=== PATIENT | female | born 1955 | race Caucasian/White ===

== ENCOUNTER → 2016-12-08 | Outpatient (CLI) | payer BC ==
[2016-12-08 10:03] LABS: BASO % 0.4 %; BASO ABS # 0.02 K/uL (0-0.2); COMPLETE YES; EOS % 2.5 %; HEMATOCRIT 40.6 % (37-47); IG% 0.4 %; LYMPH % 30.6 %; LYMPH ABS # 1.57 K/uL (1.2-3.4); MEAN CORPUSCULAR HEMOGLOBIN 31.2 pg (25-34); MEAN CORPUSCULAR HGB CONC 32.5 g/dl (32-36); MONO % 9.7 %; NEUT % 56.4 %; PLATELET COUNT 261 K/uL (130-400); RED BLOOD COUNT 4.23 M/uL (4.2-5.4); WHITE BLOOD COUNT 5.13 K/uL (4.8-10.8)
[2016-12-08 12:35] LABS: ALT/SGPT 25 U/L (12-78); AST/SGOT 14 U/L (15-37); BLOOD UREA NITROGEN 18 mg/dl (7-18); BUN/CREATININE RATIO 21.6 (10-20); CALCIUM 8.9 mg/dl (8.5-10.1); CARBON DIOXIDE 30 mmol/L (21-32); CHLORIDE 102 mmol/L (98-107); CREATININE 0.83 mg/dl (0.60-1.20); GLUCOSE 82 mg/dl (70-99); POTASSIUM 3.9 mmol/L (3.5-5.1); SODIUM 139 mmol/L (136-145)
== END | disposition home or self-care (01) ==
LOC: C.LAB 09:17
DX: M19.90 Unspecified osteoarthritis, unspecified site (principal)

== ENCOUNTER → 2016-12-08 | Outpatient (CLI) | payer BC ==
--- NOTE | 2016-12-08 16:06 | MAMMOGRAPHY REPORT ---
BILATERAL DIGITAL SCREENING MAMMOGRAM TOMOSYNTHESIS WITH CAD: 12/08/2016 CLINICAL HISTORY: Routine screening. Patient has no complaints. TECHNIQUE: Breast tomosynthesis in addition to standard 2D mammography was performed. Current study was also evaluated with a Computer Aided Detection (CAD) system. COMPARISON: Comparison is made to exams dated: 07/07/2016 mammogram, 12/05/2015 mammogram, 12/04/2014 ma mmogram, 12/01/2013 mammogram, 08/12/2012 mammogram - [facility], and 05/04/2008. BREAST COMPOSITION: The tissue of both breasts is heterogeneously dense, which may obscure small ma sses. FINDINGS: There is a newly visualized 4.8 mm nodular asymmetry in the inferior, far posterior right breast, only seen on the MLO view for which additional targeted ultrasound and possible additional mammographic views are recommended. This is thought to project laterally based on the tomosynthesis localizer bar (slice 6). A linear scar marker overlies the upper inner posterior left breast. There are stable bilateral davion ign-appearing calcifications and a stable circumscribed mass in the right upper outer quadrant. No other suspicious mass, architectural distortion or cluster of microcalcifications is seen. IMPRESSION: ACR BI-RADS CATEGORY 0: INCOMPLETE EVALUATION: NEED ADDITIONAL IMAGING EVALUATION The newly visualized 4.8 mm nodular asymmetry in the right inferior, posterior breast needs addition al evaluation. The patient will be called to schedule an appointment. Approximately 10% of breast cancers are not detected with mammography. A negative mammographic repor t should not delay biopsy if a clinically suggestive mass is present. Betina Lees M.D. ay/:12/08/2016 15:57:43 Gas Station Attendant: Zelda SHEPARD(R)(M), [facility] letter sent: Addl Imaging 0 BI-RADS Code: ACR BI-RADS Category 0: Incomplete Evaluation: Need Additional Imaging Evaluation
== END | disposition home or self-care (01) ==
LOC: C.MAMM 08:46
PROVIDERS: ATTEND Obstetrics & Gynecology
DX: Z12.31 Encounter for screening mammogram for malignant neoplasm of breast (principal); N64.89 Other specified disorders of breast

== ENCOUNTER → 2016-12-26 | Outpatient (CLI) | payer BC ==
--- NOTE | 2016-12-26 12:51 | MAMMOGRAPHY REPORT ---
UNILATERAL RIGHT DIGITAL DIAGNOSTIC MAMMOGRAM TOMOSYNTHESIS AND TARGETED RIGHT ULTRASOUND: 12/26/2016 CLINICAL HISTORY: Callback from screening mammogram for right breast mass. TECHNIQUE: Breast tomosynthesis in addition to standard 2D mammography was performed. Spot yamilex tomeka right MLO tomosynthesis images including C views were obtained. COMPARISON: Comparison is made to exams dated: 12/08/2016 mammogram, 07/07/2016 mammogram, 12/17/2015 u ltrasound, 12/17/2015 mammogram, 12/05/2015 mammogram, and 12/04/2014 mammogram - [facility]. BREAST COMPOSITION: The tissue of the right breast is heterogeneously dense, which may obscure smal l masses. FINDINGS: Spot compression views of the right breast demonstrate a persistent nodular 4 mm asymmetr y within the right inferior breast, localizing laterally based on the tomosynthesis localizer bar. Targeted ultrasound was performed of the right lower outer quadrant in the region of the mammographi c asymmetry. In the right breast at 7:00, 9 cm from the nipple along the inframammary fold, there i s a superficial oval hypoechoic 3 x 2 x 3 mm mass with non-circumscribed margins which is mostly int radermal although there is a small subdermal portion. Clinical exam of the region demonstrates no c lear plaque punctum on the skin. This corresponds with the mammographic mass. Given the mostly int radermal location of the mass, it is probably benign and likely represents a sebaceous/epidermal inc lusion cyst or other benign skin lesion. Given that no black punctum is seen on the skin and given that there is a subdermal portion, short interval follow-up is recommended. IMPRESSION: ACR-BI-RADS CATEGORY 3: PROBABLY BENIGN, TARGETED ULTRASOUND ACR-BI-RADS CATEGORY 3: MA OBABLY BENIGN Hypoechoic 3 mm mass in the right breast at 7:00 along the inframammary fold, which is largely intra dermal and is therefore probably benign and likely represents a sebaceous/epidermal inclusion cyst o r other benign skin lesion. Recommend follow-up ultrasound and possible diagnostic tomosynthesis ma mmograms of the right breast in 3 months to reevaluate. The patient has been verbally notified of the results. Approximately 10% of breast cancers are not detected with mammography. A negative mammographic repor t should not delay biopsy if a clinically suggestive mass is present. Veena Turner M.D. ah/:12/26/2016 10:28:25 Applications Chemist: Fernanda Leon, [facility] letter sent: Follow Up Recommended 3 BI-RADS Code: ACR-BI-RADS Category 3: Probably Benign Ultrasound BI-RADS: ACR-BI-RADS Category 3: P robably Benign
== END | disposition home or self-care (01) ==
LOC: C.MAMM 09:57
PROVIDERS: ATTEND Obstetrics & Gynecology
DX: N64.9 Disorder of breast, unspecified (principal); N63 Unspecified lump in breast

== ENCOUNTER → 2017-02-09 | Outpatient (CLI) | payer BC | END | disposition home or self-care (01) | LOC: C.MAMM 09:18 | DX: Z92.25 Personal history of immunosuppression therapy (principal); M85.852 Other specified disorders of bone density and structure, left thigh; M85.851 Other specified disorders of bone density and structure, right thigh ==

== ENCOUNTER → 2017-02-09 | Outpatient (CLI) | payer BC ==
[2017-02-09 11:29] LABS: CHOLESTEROL/HDL RATIO 2.4; FERRITIN 52.3 ng/ml (8.0-388.0); THYROID STIMULATING HORMONE 1.41 uIu/ml (0.300-4.500)
== END | disposition home or self-care (01) ==
LOC: C.LAB 09:54
DX: E78.5 Hyperlipidemia, unspecified (principal); R53.83 Other fatigue

== ENCOUNTER → 2017-04-22 | Outpatient (CLI) | payer BC ==
--- NOTE | 2017-04-22 15:17 | MAMMOGRAPHY REPORT ---
UNILATERAL RIGHT DIGITAL DIAGNOSTIC MAMMOGRAM TOMOSYNTHESIS WITH CAD AND TARGETED RIGHT ULTRASOUND: CLINICAL HISTORY: Short follow-up for a probable epidermal inclusion cyst in the inferior 7:00 right breast. TECHNIQUE: Right breast CC and MLO 2-D and tomosynthesis images were obtained. An additional 2-D rig ht XCCM view was also obtained. Current study was also evaluated with a Computer Aided Detection (CA D) system. COMPARISON: Comparison is made to exams dated: 12/26/2016 ultrasound, 12/26/2016 mammogram, 12/08/2016 m ammogram, 07/07/2016 mammogram, 12/17/2015 ultrasound, and 12/17/2015 mammogram - [facility]. BREAST COMPOSITION: The tissue of the right breast is heterogeneously dense, which may obscure small masses. FINDINGS: On the MLO view and corresponding tomosynthesis images, the small, 5 mm nodular asymmetry i s no longer identified. There is a stable dominant circumscribed mass in the superior right breast. A few benign-appearing calcifications. No new suspicious mass, architectural distortion or cluster of suspicious microcalcifications. Repeat targeted ultrasound was performed in the 7:00 right breast, in the area of possible epidermal inclusion cyst identified on prior ultrasound. In the 6:00, 7:00 and 8:00 axes of the right breast, 9 cm from the nipple, there is sonographically normal tissue and normal dermis without evidence of a discrete solid or cystic mass. The previously identified possible epidermal inclusion cyst has resol delaney. This is concordant with the mammographic finding. IMPRESSION: ACR BI-RADS CATEGORY 2: BENIGN, TARGETED ULTRASOUND ACR BI-RADS CATEGORY 2: BENIGN There is resolution of the mammographic and sonographic mass in the 7:00 far inferior right breast, c onfirming a benign lesion, probably a resolved epidermal inclusion cyst. There is no mammographic or targeted sonographic evidence of malignancy in the right breast. Recommend return to annual screeni mammography schedule, which is due in December 2017. These results and recommendations were discussed with the patient at the time of the exam. Approximately 10% of breast cancers are not detected with mammography. A negative mammographic report should not delay biopsy if a clinically suggestive mass is present. Betina Lees M.D. ay/:04/22/2017 12:03:51 Loading Machine Operator: Fernanda Leon, [facility] letter sent: Normal / BI-RADS Code: ACR BI-RADS Category 2: Benign Ultrasound BI-RADS: ACR BI-RADS Category 2: Benign
== END | disposition home or self-care (01) ==
LOC: C.MAMM 11:32
PROVIDERS: ATTEND Obstetrics & Gynecology
DX: N63 Unspecified lump in breast (principal)

== ENCOUNTER → 2017-08-07 | Outpatient (CLI) | payer OTHER ==
[2017-08-07 14:39] LABS: BASO % 0.4 %; BASO ABS # 0.02 K/uL (0-0.2); EOS % 2.6 %; EOS ABS # 0.14 K/uL (0-0.5); HEMATOCRIT 45.1 % (37-47); HEMOGLOBIN 14.8 g/dL (12.0-16.0); IG# 0.01 K/uL (0.00-0.02); LYMPH % 24.7 %; LYMPH ABS # 1.34 K/uL (1.2-3.4); MEAN CELL VOLUME 95.6 fL (80-100); MEAN CORPUSCULAR HEMOGLOBIN 31.4 pg (25-34); MEAN CORPUSCULAR HGB CONC 32.8 g/dl (32-36); MEAN PLATELET VOLUME 11.7 fL (7.4-10.4); MONO % 9.2 %; NEUT % 62.9 %; NEUT ABS # 3.41 K/uL (1.4-6.5); PLATELET COUNT 261 K/uL (130-400); RED CELL DISTRIBUTION WIDTH CV 13.7 % (11.5-14.5); RED CELL DISTRIBUTION WIDTH SD 48.1 fL (36.4-46.3); WHITE BLOOD COUNT 5.42 K/uL (4.8-10.8)
[2017-08-07 17:22] LABS: ALT/SGPT 25 U/L (12-78); BLOOD UREA NITROGEN 16 mg/dl (7-18); CARBON DIOXIDE 26 mmol/L (21-32); CREATININE 0.76 mg/dl (0.60-1.20); GLUCOSE 71 mg/dl (70-99); POTASSIUM 3.6 mmol/L (3.5-5.1); SODIUM 138 mmol/L (136-145)
[2017-08-07 17:32] LABS: AST/SGOT 17 U/L (15-37); TRANSFERRIN 242 mg/dl (200-360)
== END | disposition home or self-care (01) ==
LOC: C.LAB 13:03
DX: M85.80 Other specified disorders of bone density and structure, unspecified site (principal); R53.83 Other fatigue

== ENCOUNTER 2024-05-13 08:27 | Inpatient (IN) ==
--- NOTE | 2024-04-25 16:27 | PAT Medication Instructions ---
Medication Instructions Date of Service April 25, 2024 Home Medications celecoxib 200 mg capsule (Celebrex) 200 mg PO QAM esomeprazole magnesium 40 mg capsule,delayed release (Nexium) 40 mg PO QAM fexofenadine 60 mg tablet (Berenice Allergy) 60 mg PO BID PRN imipramine HCl 50 mg tablet 100 mg PO HS tramadol 50 mg tablet 50 mg PO BID PRN calcium 1 tab PO DAILY cholecalciferol (vitamin D3) 50 mcg (2,000 unit) capsule (Vitamin D3) 50 mcg PO DAILY duloxetine 40 mg capsule,delayed release 40 mg PO HS gabapentin 300 mg capsule 300 mg PO TID hydroxychloroquine 200 mg tablet 200 mg PO BID ibandronate 150 mg tablet 150 mg PO Q30D lidocaine 5 % topical patch 1 patch topical UD PRN methocarbamol 500 mg tablet 500 mg PO QID PRN multivitamin 1 tab PO DAILY ASK your surgeon for instructions celecoxib 200 mg capsule (Celebrex) 200 mg PO QAM ASK your prescriber and surgeon hydroxychloroquine 200 mg tablet 200 mg PO BID lidocaine 5 % topical patch 1 patch topical UD PRN(if needed) DO NOT take the morning of surgery fexofenadine 60 mg tablet (Berenice Allergy) 60 mg PO BID PRN calcium 1 tab PO DAILY cholecalciferol (vitamin D3) 50 mcg (2,000 unit) capsule (Vitamin D3) 50 mcg PO DAILY ibandronate 150 mg tablet 150 mg PO Q30D multivitamin 1 tab PO DAILY Take morning of surgery With a small sip of water, OTHERWISE NOTHING TO EAT OR DRINK AFTER MIDNIGHT: esomeprazole magnesium 40 mg capsule,delayed release (Nexium) 40 mg PO QAM tramadol 50 mg tablet 50 mg PO BID PRN(if needed) methocarbamol 500 mg tablet 500 mg PO QID PRN(if needed) gabapentin 300 mg capsule 300 mg PO TID Take evening before surgery fexofenadine 60 mg tablet (Berenice Allergy) 60 mg PO BID PRN(if needed) imipramine HCl 50 mg tablet 100 mg PO HS tramadol 50 mg tablet 50 mg PO BID PRN(if needed) methocarbamol 500 mg tablet 500 mg PO QID PRN(if needed) duloxetine 40 mg capsule,delayed release 40 mg PO HS gabapentin 300 mg capsule 300 mg PO TID Other Notes If you have any questions please call us at [phone] or [phone] or [phone] or [phone]
--- NOTE | 2024-05-05 11:05 | Anesthesiology Consultation ---
Date of Service May 05, 2024 Assessment & Plan (1) Encounter for pre-operative examination: Chart Review Chart Review: Acceptable Risk for Surgery (pending surgeon ordered PCP clearance ) and Patient seen in Pre Admission Testing - Awaiting PCP clearance- Dr. Lizarraga 05/02/24- PCP awaiting preop testing- please fax preop testing to PCP Per PAT appt on 05/05/24, no recent illness/disease exposures, illness related symptoms, or recent illness/disease positive tests. Will leave to surgeon's discretion if preop Covid testing needed Teaching & Discussion Pre-Anesthesia Teaching/Discussion Notes: Instructed NPO after midnight before surgery,except medications with 15 cc of water. Medication instructions provided according to the PAT guidelines. History Surgery Operation Date: 05/13/24 11:30 Proposed Procedures p L4-S1 Decompression and Fusion - Kvng Crowe DO Height/Weight Height: 5 ft 2.5 in Weight: 65.7 kg Allergies Allergy/AdvReac Type Severity Reaction Status Date / Time prednisone Allergy Intermediate resp Verified 04/25/24 11:16 distress Sulfa (Sulfonamide Allergy Mild Difficulty Verified 04/25/24 11:16 Antibiotics) Breathing Corticosteroids Allergy Unknown respiratory Verified 04/25/24 11:16 (Glucocorticoids) distress pseudoephedrine Allergy Unknown Hives Verified 04/25/24 11:16 Medications Home Medications Medication Instructions Recorded Confirmed Last Taken celecoxib 200 mg capsule (Celebrex) 200 mg PO QAM 07/19/20 04/25/24 Unknown esomeprazole magnesium 40 mg 40 mg PO QAM 07/19/20 04/25/24 Unknown capsule,delayed release (Nexium) fexofenadine 60 mg tablet (Berenice 60 mg PO BID PRN Allergy Symptoms 07/19/20 04/25/24 Unknown Allergy) imipramine HCl 50 mg tablet 100 mg PO HS 07/19/20 04/25/24 Unknown tramadol 50 mg tablet 50 mg PO BID PRN Pain 07/19/20 04/25/24 Unknown calcium 1 tab PO DAILY 04/25/24 04/25/24 Unknown cholecalciferol (vitamin D3) 50 50 mcg PO DAILY 04/25/24 04/25/24 Unknown mcg (2,000 unit) capsule (Vitamin D3) duloxetine 40 mg capsule,delayed 40 mg PO HS 04/25/24 04/25/24 Unknown release gabapentin 300 mg capsule 300 mg PO TID 04/25/24 04/25/24 Unknown hydroxychloroquine 200 mg tablet 200 mg PO BID 04/25/24 04/25/24 Unknown ibandronate 150 mg tablet 150 mg PO Q30D 04/25/24 04/25/24 Unknown lidocaine 5 % topical patch 1 patch topical UD PRN Pain 04/25/24 04/25/24 Unknown methocarbamol 500 mg tablet 500 mg PO QID PRN muscle spasms 04/25/24 04/25/24 Unknown multivitamin 1 tab PO DAILY 04/25/24 04/25/24 Unknown Past Medical History Medical History (Updated 05/06/24 @ 09:25 by Abby Bryant PA-C) Anemia 1972, no current issues Arthritis Takes Plaquenil for OA per patient Fibromyalgia History of anesthesia reaction "got very itchy after her hysterectomy anesthesia" Osteoporosis Exercise / Class Metabolic Activity II 4-5 Yardwork/Stairs/Walk up hill (one flight of stairs - no chest pain or SOB ) Past Family History Family History Denies family history of Ovarian cancer Breast cancer Colorectal cancer Past Surgical History Surgical History H/O laminectomy 1985, base of neck, ROM "cannot turn entire way to shoulder, able to look up and down" H/O: hysterectomy [facility] for fibroids / menorrhagia, still retains ovaries History of esophagogastroduodenoscopy (EGD) History of tonsillectomy Hx of bilateral cataract extraction Hx of colonoscopy Hx of sinus surgery ~2008 S/P lumpectomy of breast x1 on each side>both benign S/P rotator cuff repair right Past Anesthesia History No Hx of Anesthesia Complications (with exception to remote history of itching post op with hysterectomy in early - no issues with subsequent surgeries ) and No Family Hx of Anesthesia Complications (with exception to mother - hallucinations and emotional post op ) History of PONV No Hx of PONV and No Hx of Motion Sickness Social History Smoking Status: Former smoker Do You Dip or Chew Tobacco: No Smoking End Date: as a teenager Hx Alcohol Use: Yes Alcohol type: hard liquor alcohol intake frequency: 0-2 drinks per day (1 drink/day) Hx Substance Use: Yes (medical card) substance use type: marijuana Last Used Substance Other:: pain cream every day, lozenges used 10mg daily Review of Systems - Hx of snoring- no witnessed apnea- no hx of sleep study Patient denies chest pain, shortness of breath, dyspnea on exertion, reflux, cough, wheezing, palpitations. No hx of seizures, stroke, [place]. No hx of blood clots or blood transfusions Physical Exam Vital Signs VITALS BP 142/83 P 91 TEMP 98.3 SP02 94% RESP 16 Constitutional no acute distress ENMT Mouth: no TMJ clicking Thyromental Distance: > or= 3.5 Finger Breadths (3.5) Mallampati Class: III Missing molars [place] to molar Neck + limited neck extension Respiratory normal respiratory effort; no respiratory distress Auscultation: lungs clear to auscultation bilaterally; no wheezes Cardiovascular Rate/Rhythm: regular rate and regular rhythm Heart Sounds: no murmur Vessels: no carotid bruit Musculoskeletal Spine: + pain with cervical ROM Extremities: extremities normal to inspection Psychiatric Orientation: alert Lab Results Anesthesia Preop Results Results Anesthesia Widget: WBC 7.40 K/ul (4.8-10.8) 05/05/24 Hgb 14.6 g/dl (12.0-16.0) 05/05/24 Hct 45.7 % (37.0-47.0) 05/05/24 Plt 309 K/uL (130-400) 05/05/24 Na 140 mmol/L (136-145) 05/05/24 K 4.2 mmol/L (3.5-5.1) 05/05/24 Cl 100 mmol/L (98-107) 05/05/24 CO2 34 mmol/L (21-32) H 05/05/24 BUN 11 mg/dl (6-23) 05/05/24 Creat 0.83 mg/dl (0.6-1.2) 05/05/24 Glucose Level 92 mg/dl (70-99(Fasting)) 05/05/24 PT 10.6 Seconds (9.0-12.0) 05/05/24 PTT 29 Seconds (21-31) 05/05/24 INR 1.0 (0.9-1.1) 05/05/24 Urine Color Dark Yellow 05/05/24 Urine Appearance Clear (Clear) 05/05/24 Urine pH 6.0 (4.5-7.5) 05/05/24 Urine Specific [place] 1.014 (1.000-1.030) 05/05/24 Urine Protein Trace (Negative) H 05/05/24 Urine Glucose (UA) Negative (Negative) 05/05/24 Urine Ketones Trace (Negative) H 05/05/24 Urine Blood Negative (Negative) 05/05/24 Urine Nitrite Negative (Negative) 05/05/24 Urine Bilirubin 1+ (Negative) H 05/05/24 Urine Urobilinogen Negative (Negative) 05/05/24 Urine Leukocyte Esterase Trace (Negative) H 05/05/24 Urine WBC (Auto) 0-5 /hpf (0-5) 05/05/24 Urine RBC (Auto) 0-2 /hpf (0-2) 05/05/24 Urine Hyaline Casts (Auto) 0-2 /lpf (0-2) 05/05/24 Urine Epithelial Cells (Auto) 0-2 /hpf (0-2) 05/05/24 Urine Bacteria (Auto) None Seen (None Seen) 05/05/24 Blood Type O Positive 05/05/24 Antibody Screen NEGATIVE 05/05/24 Testing Electrocardiogram Date: 05/05/24 Findings: + NSR @ (98bpm) Normal EKG per cardio Chest X-Ray Date: 05/05/24 FINDINGS: Lung volumes are normal. Lungs are clear. There is no pneumothorax or pleural effusion. The heart is mildly enlarged. There is a large hiatal hernia. There is no evidence for pulmonary edema. Dextroscoliosis of the upper thoracic spine is incidentally noted. IMPRESSION: 1. No acute cardiopulmonary findings. 2. Mild cardiomegaly. 3. Large hiatal hernia.
[2024-05-13] MEDS ORDERED: ROCURONIUM BROMIDE 10 MG/ML 5 ML VIAL IV ONE (09:22)
[2024-05-13] MEDS ORDERED: LIDOCAINE 2% 2 ML VIAL/AMP(20MG/ML) INFIL ONE (09:22)
[2024-05-13] MEDS ORDERED: PROPOFOL IV EMULSION 10 MG/ML 20 ML VIAL IV ONE ×2 (09:22→12:45)
[2024-05-13] MEDS ORDERED: MIDAZOLAM HCL 1 MG/ML 2ML VIAL ONE (09:22)
[2024-05-13] MEDS ORDERED: fentaNYL citrate PF 100 MCG/2 ML VIAL ONE ×2 (09:22→11:31)
[2024-05-13] MEDS ORDERED: ONDANSETRON INJ 2 MG/ML 2 ML VIAL ONE (09:22)
[2024-05-13] MEDS: LR 15ML/HR IV SCH (09:34)
[2024-05-13] MEDS: LR 60ML/HR IV SCH (09:36)
[2024-05-13] MEDS: CeleBREX 200 MG CAP PO SCH (09:38)
[2024-05-13] MEDS: GABAPENTIN 300 MG CAP PO SCH ×2 (09:38→17:31)
[2024-05-13] MEDS: ACETAMINOPHEN 500 MG TAB PO SCH (09:38)
[2024-05-13] MEDS ORDERED: ATROPINE SULFATE 0.1 MG/ML 10ML SYR IV PRN (09:44)
[2024-05-13] MEDS ORDERED: HYDROmorphone INJ 1 MG/ML SYRINGE IV PRN (09:44)
[2024-05-13] MEDS ORDERED: ePHEDrine sulfate 50 MG/ML AMP IV PRN (09:44)
[2024-05-13] MEDS ORDERED: ONDANSETRON INJ 2 MG/ML 2 ML VIAL IV PRN (09:44)
--- NOTE | 2024-05-13 09:54 | History & Physical Report ---
Date of Service May 13, 2024 Assessment & Plan (1) Neurogenic claudication due to lumbar spinal stenosis: Plan: L4-S1 decompression and fusion History of Present Illness Chief Complaint: Back and leg pain Primary Care Provider: James Lizarraga MD This is a 6-year-old female presents for chronic persistent back and leg pain after failing course of nonoperative care is here for surgical intervention. Allergies Allergy/AdvReac Type Severity Reaction Status Date / Time prednisone Allergy Intermediate resp Verified 05/13/24 08:53 distress Sulfa (Sulfonamide Allergy Mild Difficulty Verified 05/13/24 08:53 Antibiotics) Breathing Corticosteroids Allergy Unknown respiratory Verified 05/13/24 08:53 (Glucocorticoids) distress pseudoephedrine Allergy Unknown Hives Verified 05/13/24 08:53 Home Medications Medication Instructions Recorded Confirmed Type celecoxib 200 mg capsule (Celebrex) 200 mg PO QAM 07/19/20 04/25/24 History esomeprazole magnesium 40 mg 40 mg PO QAM 07/19/20 05/13/24 History capsule,delayed release (Nexium) fexofenadine 60 mg tablet (Berenice 60 mg PO BID PRN Allergy Symptoms 07/19/20 05/13/24 History Allergy) imipramine HCl 50 mg tablet 100 mg PO HS 07/19/20 05/13/24 History tramadol 50 mg tablet 50 mg PO BID PRN Pain 07/19/20 05/13/24 History calcium 1 tab PO DAILY 04/25/24 05/13/24 History cholecalciferol (vitamin D3) 50 50 mcg PO DAILY 04/25/24 05/13/24 History mcg (2,000 unit) capsule (Vitamin D3) duloxetine 40 mg capsule,delayed 40 mg PO HS 04/25/24 05/13/24 History release gabapentin 300 mg capsule 300 mg PO TID 04/25/24 05/13/24 History hydroxychloroquine 200 mg tablet 200 mg PO BID 04/25/24 05/13/24 History ibandronate 150 mg tablet 150 mg PO Q30D 04/25/24 05/13/24 History lidocaine 5 % topical patch 1 patch topical UD PRN Pain 04/25/24 05/13/24 History methocarbamol 500 mg tablet 500 mg PO QID PRN muscle spasms 04/25/24 05/13/24 History multivitamin 1 tab PO DAILY 04/25/24 05/13/24 History Lactobacil.acidophilus-Bifido.animalis 1 cap PO DAILY 05/13/24 05/13/24 History 5 billion cell sprinkle capsule (Probiotic) Past Med/Surg History Problem List (Updated 05/13/24 @ 09:54 by Kvng Crowe DO) Neurogenic claudication due to lumbar spinal stenosis Encounter for pre-operative examination Extremely dense tissue of both breasts on mammography Osteoporosis Fibromyalgia Arthritis Medical History (Updated 05/13/24 @ 09:54 by Kvng Crowe DO) History of anesthesia reaction "got very itchy after her hysterectomy anesthesia" Arthritis Takes Plaquenil for OA per patient Fibromyalgia Osteoporosis Anemia 1971, no current issues Surgical History History of esophagogastroduodenoscopy (EGD) Hx of colonoscopy Hx of sinus surgery ~2008 Hx of bilateral cataract extraction S/P rotator cuff repair right H/O laminectomy 1985, base of neck, ROM "cannot turn entire way to shoulder, able to look up and down" History of tonsillectomy H/O: hysterectomy [facility] for fibroids / menorrhagia, still retains ovaries S/P lumpectomy of breast x1 on each side>both benign Family History Denies family history of Ovarian cancer Breast cancer Colorectal cancer Social History Smoking Status: Former smoker Smoking End Date: as a teenager; Second Hand Exposure: No; Do You Dip or Chew Tobacco: No; Tobacco Cessation Education Requested by Patient: No Hx Alcohol Use: Yes Alcohol type: hard liquor Hx Substance Use: Yes (medical card) Last Used Substance Other:: pain cream every day, lozenges used 10mg daily Preferred Language: Estonian Communication Ability: Effective Heel Lift Gouger Required: No Beliefs That Will Affect Care: None Current Living Situation: Spouse Other Information That Helps Us Care for You: No Feels Safe at Home: Yes Safety Concerns: Feels Safe At This Time Assistive Devices: None Physical Exam Physical Exam: Patient is alert and oriented heart regular rhythm Lungs clear Results & Data Results & Data Vital Signs (Past 12 Hours) Vital Signs Temp Pulse Resp BP Pulse Ox O2 Del Method 05/13/24 09:01 36.7 C 89 16 159/83 H 98 Room Air
--- NOTE | 2024-05-13 09:54 | History & Physical Bridge Note ---
Date of Service May 13, 2024 History & Physical Bridge Note I have examined the patient, reviewed the History & Physical and in the interval since the performance of the History & Physical I have noted the following changes of clinical significance: no changes noted
[2024-05-13] MEDS: ceFAZolin 2000MG 2,000 MG/15 ML SYR IV SCH (11:08)
[2024-05-13] MEDS: BUPIVACAINE/EPINEPHRINE 0.25% 1:200,000 30 ML VIAL ONE (11:48)
[2024-05-13] MEDS: ceFAZolin 330 MG/ML 1 GM VIAL ONE (11:49)
[2024-05-13] MEDS: FLOSEAL HEMOSTATIC MATRIX 10ML TOP ONE (12:42)
[2024-05-13] MEDS ORDERED: diphenhydrAMINE 50 MG/ML VIAL ONE (12:45)
[2024-05-13] MEDS ORDERED: DEXAMETHASONE SOD INJ 4 MG/ML VIAL ONE (12:45)
--- NOTE | 2024-05-13 12:56 | Operative Report ---
Post Operative Report Pre & Post Diagnosis Operation Date: 05/13/24 10:05 Pre-Op Diagnosis: Spinal Stenosis of Lumbar Region with Radiculopathy Spondylolisthesis L5-S1 Post-Op Diagnosis: Same I identified the patient and participated in the time-out.: Yes Procedure Operation Date: 05/13/24 10:05 Actual Procedures #1 lumbar decompression bilaterally facetectomies and foraminotomies L4-5 L5-S1. #2 posterior spinal fusion L4-L5 L5-S1. #3 placement posterior instrumentation L4-S1. #4 interbody fusion L5-S1. #5 placement Spira 10 x 26 mm at L5-S1. #6 placement locally harvested morselized autograft and posterior gutters. #7 placement of infuse collagen sponge, with Koros in the posterior lateral gutters and os design interbody space. Surgeon Kvng Crowe, Trailer Tank Truck Driver Nico Hernandez Estimated Blood Loss 400 Findings Consistent with Post-Op Diagnosis Specimens None Indications This is a 69-year-old female presents problems diagnosis with failing course of nonoperative care is here for surgical invention. Description of Procedure Patient was met with identified informed consent obtained. Patient was then taken to the operative suite underwent patient placed in a prone position on the Micah table on top of the Vitor frame. All bony promises well-padded eyes inspected to ensure no external pressure placed upon the. This point the lumbar spine was prepped and draped in normal sterile fashion. Sharp dissection with the assistance of Bovie cautery from down to and exposing the lamina transverse processes of L4-5 and the sacral ala bilaterally. From caudal to cephalad fashion complete laminectomy of L5 was performed. Obvious pars defects identified. Significant epidural ectasia was noted with deficit of the dura extending through the lateral recess. I placed a DuraGen patch over this region. I then proceeded to perform a decompression of L4 with bilateral medial facetectomies and foraminotomies. Pedicle screws were then placed in L4-L5 and S1 levels bilaterally with assistance of fluoroscopy process fely placed. By way of transforaminal approach on the right a complete discectomy of L5-S1 was performed endplates guarded to subcortical mean bone and a 10 x 26 mm spiral cage filled with os design tapped position. The rods were then locked in final position bilaterally. The transverse processes of L4-5 and the sacral ala burred to subcortical bleeding bone. Infuse collagen sponge combined with Koros and local autograft placed in the posterior gutters. DuraSeal was then placed over the dura. 15 round JEWELL drain inserted. Incision was then closed with 1 Vicryl the fascia 2-0 Vicryl subcutaneously and 4 Monocryl for final skin closure. Steri-Strips sterile dressing placed. Patient waken taken the PACU stable condition. Please note spinal cord monitoring was utilized at the procedure no changes noted. Nico Hernandez was present out the entire procedure involved the patient positioning complex portions of the surgery and final skin closure. Im ordering 20 grams of Triple [place] Collagen Powder (Airseed [id number]) to treat an incision wound that was caused by a spine procedure. The incision is approximately 2 cm(W) x 4 cm(L) into the joint (D) in size and is a full thickness wound. Triple [place] collagen comes in 1 gram packets so 20 packets were ordered. Given the size of the wound, with light to moderate exudate I chose to order a 20 day supply. The patient will be provided instructions for proper application of the collagen wound kit. The patient will be asked to apply the collagen powder daily and then cover it with sterile dressings dispensed. Collagen was selected as I expect the collagen to attract monocytes and fibroblasts, act as a sacrificial substrate for MMPs, and ultimately proved a matrix for tissue and vessel growth. The collagen will act as a primary dressing in this scenario. It is medically necessary for proper healing of these wounds to improve bioavailability and contact with each wound surface, this is also to help prevent infection of wounds and promote healing ultimately leading to a better healing outcome and limit the risk of infection. I attest to the content of the Intraoperative Record and any orders documented therein. Any exceptions are noted below.
--- NOTE | 2024-05-13 13:49 | Fluoroscopy Report ---
INTRAOPERATIVE RADIOGRAPHS CLINICAL HISTORY: L4-S1 spinal fusion. Fluoro time: 33 seconds. Ka,r: 29.22 mGy FINDINGS: 2 spot fluoroscopic views of the lumbar spine are presented. There has been discectomy at L 5-S1 with laminectomy and posterior fusion at L4-S1. Interpedicular screws are present at all levels. The orthopedic hardware appears intact. IMPRESSION: Intraoperative images from lumbar spinal fusion surgery as above. Electronically signed by: Lizandro Anderson M.D. 05/13/2024 1:48 PM
[2024-05-13] MEDS: fentaNYL citrate PF 100 MCG/2 ML VIAL IV PRN (13:50)
--- NOTE | 2024-05-13 15:09 | Anesthesiology Progress Note ---
Date of Service May 13, 2024 Anesthesia Post Procedure Vital Signs Vital Signs: Temp Pulse Resp BP Pulse Ox O2 Del Method O2 Flow Rate 05/13/24 15:00 92 H 14 109/64 96 Nasal Cannula 2 05/13/24 14:45 87 14 138/72 96 Nasal Cannula 2 05/13/24 14:30 89 12 133/66 95 Nasal Cannula 2 05/13/24 14:20 91 H 12 102/64 93 Nasal Cannula 2 05/13/24 14:10 36.4 C L 88 13 116/62 95 Nasal Cannula 2 05/13/24 14:00 85 12 120/59 L 94 Nasal Cannula 2 05/13/24 13:50 84 12 118/58 L 95 Nasal Cannula 2 05/13/24 13:40 85 16 119/58 L 98 Oxymask 4 05/13/24 13:35 81 13 109/54 L 97 Oxymask 4 05/13/24 13:25 87 12 117/61 95 Oxymask 6 05/13/24 13:19 36.2 C L 91 H 16 116/68 96 Oxymask 6 05/13/24 09:01 36.7 C 89 16 159/83 H 98 Room Air Pain Intensity Lower Back: Pain Intensity: 4 Transfer of Care Handoff Completed per policy Notes Mental Status: alert / awake / arousable and participated in evaluation Patient Amnestic to Procedure: Yes Nausea / Vomiting: adequately controlled Pain: adequately controlled Airway Patency, RR, SpO2: stable & adequate BP & HR: stable & adequate Hydration State: stable & adequate Anesthetic Complications: no major complications apparent and Pt Satisfied with anesthetic care
[2024-05-13] MEDS ORDERED: diphenhydrAMINE Capsule 25 MG CAP PO PRN (15:42)
[2024-05-13] MEDS ORDERED: NALOXONE HCL 0.4 MG/1 ML VIAL/CARP IV PRN (15:42)
[2024-05-13] MEDS ORDERED: ONDANSETRON 4 MG OD TAB PO PRN (15:42)
[2024-05-13] MEDS ORDERED: MAGNESIUM HYDROXIDE SUSP 30 ML UDC PO PRN (15:42)
[2024-05-13] MEDS ORDERED: FEXOFENADINE 60 MG TAB PO PRN (15:42)
[2024-05-13] MEDS ORDERED: ALUMINUM/MAGNESIUM SUSP 30 ML UDC PO PRN (15:42)
[2024-05-13] MEDS ORDERED: HYDROmorphone INJ 0.5 MG/0.5 ML SYR IV PRN (15:42)
[2024-05-13] MEDS ORDERED: bisacodyL 10 MG SUPP PR PRN (15:42)
[2024-05-13] MEDS ORDERED: hydrOXYzine HCl 25 MG TAB PO PRN (15:42)
[2024-05-13] MEDS ORDERED: METOCLOPRAMIDE HCL INJ 5 MG/ML 2 ML VIAL IV PRN (15:42)
[2024-05-13] MEDS ORDERED: SOD PHOSPHATE/SOD BIPHOSPHATE ENEMA 132 ML BTL PR PRN (15:42)
[2024-05-13] MEDS ORDERED: DO NOT ADMINISTER PNEUMOCOCCAL VACCINE PRN (15:42)
[2024-05-13] MEDS ORDERED: FAMOTIDINE 20 MG TAB PO PRN (15:42)
[2024-05-13] MEDS ORDERED: DO NOT ADMINISTER FLU VACCINE PRN (15:42)
[2024-05-13] MEDS: HYDROmorphone INJ 1 MG/ML SYRINGE IV PRN (16:43)
[2024-05-13] MEDS: LACTATED RINGER'S 1,000 ML IV SCH (16:43)
[2024-05-13] MEDS: traMADol HCL 50 MG TABLET PO PRN (17:31)
[2024-05-13] MEDS: ceFAZolin 1000MG 1,000 MG/7.5 ML SYR IV SCH (18:08)
--- NOTE | 2024-05-13 18:10 | Hospitalist Consultation ---
Date of Consultation May 13, 2024 Assessment & Plan (1) Neurogenic claudication due to lumbar spinal stenosis: Assessment 1. Lumbar spinal stenosis status post lumbar spinal decompression with instrumentation. Please refer to the operative report for complete procedure history. Patient is postop day 0 today. When asked to see the patient on routine hospitalist consultation for Co. medical management. She tolerated the procedure well without any apparent complication as discussed above. 2. Patient reports a history of osteoarthritis and she takes Plaquenil for that. She does see a belt cutter. I suspect the history is rheumatoid arthritis. She was questioned but is insistent osteoarthritis. 3. GERD. 4. Chronic pain due to lumbar spinal stenosis. Pain management postoperatively per primary service. 5. Osteoporosis by history. 6. History of fibromyalgia Plan: As discussed above. Please refer to orders for further planning. Will obtain some routine postoperative laboratory studies in the morning to assess her electrolyte status or metabolic status and her blood counts. Otherwise we will be available 24 hours a day 7 days a week for questioning. Will continue to follow with her as she continues to convalesce her spine surgery here at [facility]. We thank you for the opportunity to Co. participate in the care of Ms. Veronica. History of Present Illness Reason for Consultation: Co. medical management. Attending Physician: Kvng Crowe, DO History of Present Illness This is a pleasant 69-year-old female with a history of spinal stenosis who presented [facility] earlier today to undergo elective spine surgery with Dr. Kvng Crowe. The patient underwent extensive spine surgery please refer to the operative report in short she underwent lumbar decompression with instrumentation. Routine hospitalist consultation was placed for Co. medical management. We are seeing her postoperative in her room and 356 but 2. Currently the patient is in her bed she is seated she is wide-awake sees consuming a clear liquid diet and she has no specific complaints. Allergies Allergy/AdvReac Type Severity Reaction Status Date / Time prednisone Allergy Intermediate resp Verified 05/13/24 08:53 distress Sulfa (Sulfonamide Allergy Mild Difficulty Verified 05/13/24 08:53 Antibiotics) Breathing Corticosteroids Allergy Unknown respiratory Verified 05/13/24 08:53 (Glucocorticoids) distress pseudoephedrine Allergy Unknown Hives Verified 05/13/24 08:53 Home Medications Medication Instructions Recorded Confirmed Type celecoxib 200 mg capsule (Celebrex) 200 mg PO QAM 07/19/20 04/25/24 History esomeprazole magnesium 40 mg 40 mg PO QAM 07/19/20 05/13/24 History capsule,delayed release (Nexium) fexofenadine 60 mg tablet (Berenice 60 mg PO BID PRN Allergy Symptoms 07/19/20 05/13/24 History Allergy) imipramine HCl 50 mg tablet 100 mg PO HS 07/19/20 05/13/24 History tramadol 50 mg tablet 50 mg PO BID PRN Pain 07/19/20 05/13/24 History calcium 1 tab PO DAILY 04/25/24 05/13/24 History cholecalciferol (vitamin D3) 50 50 mcg PO DAILY 04/25/24 05/13/24 History mcg (2,000 unit) capsule (Vitamin D3) duloxetine 40 mg capsule,delayed 40 mg PO HS 04/25/24 05/13/24 History release gabapentin 300 mg capsule 300 mg PO TID 04/25/24 05/13/24 History hydroxychloroquine 200 mg tablet 200 mg PO BID 04/25/24 05/13/24 History ibandronate 150 mg tablet 150 mg PO Q30D 04/25/24 05/13/24 History lidocaine 5 % topical patch 1 patch topical UD PRN Pain 04/25/24 05/13/24 History methocarbamol 500 mg tablet 500 mg PO QID PRN muscle spasms 04/25/24 05/13/24 History multivitamin 1 tab PO DAILY 04/25/24 05/13/24 History Lactobacil.acidophilus-Bifido.animalis 1 cap PO DAILY 05/13/24 05/13/24 History 5 billion cell sprinkle capsule (Probiotic) Patient History Medical History (Updated 05/13/24 @ 09:54 by Kvng Crowe DO) History of anesthesia reaction "got very itchy after her hysterectomy anesthesia" Arthritis Takes Plaquenil for OA per patient Fibromyalgia Osteoporosis Anemia 1971, no current issues Surgical History History of esophagogastroduodenoscopy (EGD) Hx of colonoscopy Hx of sinus surgery ~2008 Hx of bilateral cataract extraction S/P rotator cuff repair right H/O laminectomy 1985, base of neck, ROM "cannot turn entire way to shoulder, able to look up and down" History of tonsillectomy H/O: hysterectomy ZORA for fibroids / menorrhagia, still retains ovaries S/P lumpectomy of breast x1 on each side>both benign Family History Denies family history of Ovarian cancer Breast cancer Colorectal cancer Social History Smoking Status: Former smoker Smoking End Date: as a teenager; Second Hand Exposure: No; Do You Dip or Chew Tobacco: No; Tobacco Cessation Education Requested by Patient: No Hx Alcohol Use: Yes Alcohol type: hard liquor Hx Substance Use: Yes (medical card) Last Used Substance Other:: pain cream every day, lozenges used 10mg daily Preferred Language: Upper Sorbian Communication Ability: Effective Metal Window Frame Maker Required: No Beliefs That Will Affect Care: None Current Living Situation: Spouse Other Information That Helps Us Care for You: No Feels Safe at Home: Yes Safety Concerns: Feels Safe At This Time Assistive Devices: None Review of Systems Review of Systems: A 10 point review of system was obtained and unless otherwise stated here or in history of present illness are negative and noncontributory to chief complaint. Physical Exam Physical Exam: In General: This is a pleasant 69-year-old female who is alert oriented x 3 at the time of my exam she has no specific complaints. She is seated in bed as discussed above she is having clear liquids for dinner. She is tolerating these well. She complains of no postoperative pain at this time. HEENT: Normocephalic atraumatic pupils are equal round and reactive to light bilaterally. No scleral icterus no conjunctival injection external auditory canals are patent septum is in the midline nose is without discharge oral mucosa is pink and moist without lesion. NECK: Supple no rigidity no lymphadenopathy no thyromegaly no carotid bruits no JVD no masses. HEART: Regular rate and rhythm I do not appreciate any ectopy or rub. No murmu r. LUNGS: Clear to auscultation bilaterally and anteriorly -we did not listen to the posterior lung duggan to set the patient up we do not have an lpn medical assistant in the room when she is status post spine surgery. ABDOMEN: Soft nontender, no rebound, no peritoneal signs, positive bowel sounds, no appreciable organomegaly. A Montano catheter is in place draining clear yellow urine. EXTREMITIES: Intact, no peripheral cyanosis, clubbing or edema and both neurovascularly intact. NEUROLOGICAL: Alert and oriented x 3 no focal deficit but we did not attempt to ambulate the patient or test her lower extremity strength excetra given the fact that she is status post spine surgery. Results & Data Results & Data Vital Signs (Past 12 Hours) Vital Signs Temp Pulse Resp BP Pulse Ox O2 Del Method O2 Flow Rate 05/13/24 17:09 Room Air 05/13/24 17:02 36.4 C L 110 H 14 125/68 93 Room Air 05/13/24 16:30 37 C 103 H 16 103/61 94 Room Air 05/13/24 16:00 37 C 103 H 16 129/73 93 Room Air 05/13/24 15:30 94 H 20 123/71 94 Nasal Cannula 2 05/13/24 15:15 93 H 14 142/57 H 96 Nasal Cannula 2 05/13/24 15:00 92 H 14 109/64 96 Nasal Cannula 2 05/13/24 14:45 87 14 138/72 96 Nasal Cannula 2 05/13/24 14:30 89 12 133/66 95 Nasal Cannula 2 05/13/24 14:20 91 H 12 102/64 93 Nasal Cannula 2 05/13/24 14:10 36.4 C L 88 13 116/62 95 Nasal Cannula 2 05/13/24 14:00 85 12 120/59 L 94 Nasal Cannula 2 05/13/24 13:50 84 12 118/58 L 95 Nasal Cannula 2 05/13/24 13:40 85 16 119/58 L 98 Oxymask 4 05/13/24 13:35 81 13 109/54 L 97 Oxymask 4 05/13/24 13:25 87 12 117/61 95 Oxymask 6 05/13/24 13:19 36.2 C L 91 H 16 116/68 96 Oxymask 6 05/13/24 09:01 36.7 C 89 16 159/83 H 98 Room Air PG Care Time/CCT Total # of Minutes Spent Total Time Spent with Patient: Total time spent is greater than 50% in coordination of care (as documented) at patient's floor/unit and/or counseling patient: Coding Level of Care Code 13198 IN/OBS CONSULT LVL 3,45M Diagnoses Neurogenic claudication due to lumbar spinal stenosis M48.062
[2024-05-13] MEDS: DULoxetine HCL 20 MG CAP PO SCH (20:59)
[2024-05-13] MEDS: HYDROXYCHLOROQUINE SULFATE 200 MG TAB PO SCH (21:00)
[2024-05-13] MEDS: DOCUSATE SODIUM/SENNA 50/8.6MG TAB PO SCH (21:07)
[2024-05-13] MEDS: IMIPRAMINE HCL 50 MG TAB PO SCH (21:11)
[2024-05-14] MEDS: ACETAMINOPHEN 500 MG TAB PO PRN (00:47)
[2024-05-14] MEDS: POLYETHYLENE (MIRALAX) 17 GM PACK PO SCH (05:54)
[2024-05-14] MEDS: oxyCODONE HCL IR 5 MG TAB (IMMEDIATE RELEASE) PO PRN (05:54)
[2024-05-14] MEDS: ONDANSETRON INJ 2 MG/ML 2 ML VIAL IV PRN (06:03)
[2024-05-14 07:11] LABS: Basophils # (auto) 0.02 K/uL (0.00-0.20); Basophils % (auto) 0.1 %; Hematocrit (blood only) 35.2 % (37.0-47.0); Hemoglobin 11.4 g/dl (12.0-16.0); Immature Granulocytes # (auto) 0.06 K/uL (0.01-0.20); Immature Granulocytes % (auto) 0.4 %; Lymphocytes # (auto) 0.32 K/uL (1.20-3.40); Lymphocytes % (auto) 2.2 %; Mean Corpuscular Hgb Conc 32.4 g/dL (32.0-36.0); Mean Corpuscular Volume 92.6 fL (80.0-100.0); Mean Platelet Volume 11.1 fL (9.4-12.4); Monocytes # (auto) 1.12 K/uL (0.11-0.59); Monocytes % (auto) 7.8 %; Neutrophils # (auto) 12.92 K/uL (1.40-6.50); Neutrophils % (auto) 89.5 %; Platelet Count 211 K/uL (130-400); RDW Coefficient of Variation 13.4 % (11.5-14.5); RDW Standard Deviation 45.9 fL (36.4-46.3); White Blood Count 14.44 K/ul (4.8-10.8)
[2024-05-14 07:40] LABS: Albumin Globulin Ratio 1.5 (0.9-2); Albumin Level 3.6 gm/dl (3.4-5.0); BUN Creatinine Ratio 20.4 (10-20); Bilirubin,Total 0.4 mg/dl (0.2-1.0); Calcium 8.5 mg/dl (8.6-10.3); Creatinine Clr Calc Pharmacy 86.9 ml/min; Globulin 2.4 gm/dl (2.5-4.0); Magnesium 1.7 mg/dl (1.7-2.4); Potassium 4.1 mmol/L (3.5-5.1)
[2024-05-14] MEDS: PANTOprazole 40 MG TAB PO SCH (08:15)
[2024-05-14] MEDS: CALCIUM CARBONATE 1250MG TAB PO SCH (08:16)
[2024-05-14] MEDS: CHOLECALCIFEROL 25 MCG (1000 UNITS) TAB PO SCH (08:16)
[2024-05-14] MEDS: MULTIVITAMIN TAB PO SCH (08:16)
[2024-05-14] MEDS: dexAMETHasone 6 MG in SYRINGE 0 ML IV SCH (08:17)
--- NOTE | 2024-05-14 08:52 | Orthopedic Progress Note ---
Date of Service May 14, 2024 Assessment & Plan (1) Neurogenic claudication due to lumbar spinal stenosis: Plan: At this time we will maintain strict bedrest today. She may elevate the bed up to 20 degrees to eat. I have removed her drain this morning. I will reassess tomorrow for possible increase in activity pending her status. Maintain hydration and IV fluids. Admission and Anticipated Discharge Date Admission Date: May 13, 2024 Subjective Patient's leg pain is improved but she is struggling with some dizziness and he adaches. Physical Exam Physical Exam: On exam she is neurologically intact. She is comfortable this morning. Results & Data Vital Signs (Past 12 Hours) Vital Signs Temp Pulse Pulse Resp BP BP Pulse Ox 05/14/24 07:40 36.4 C 85 14 126/72 94 05/14/24 04:48 36.5 C 86 16 137/81 94 05/14/24 00:26 36.4 C L 86 18 135/71 94 05/13/24 21:24 36.7 C 87 18 120/71 97 O2 Del Method 05/14/24 07:40 Room Air 05/14/24 04:48 Room Air 05/14/24 00:26 Room Air 05/13/24 21:24 Room Air
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
[2024-05-14] MEDS: PROMETHAZINE 12.5 MG/50.5 ML BAG IV PRN (10:01)
[2024-05-14] MEDS: ACETAMINOPHEN 1,000 MG/100 ML VIAL IV PRN (13:12)
[2024-05-15 09:23] LABS: Hematocrit (blood only) 32.8 % (37.0-47.0); Mean Corpuscular Hemoglobin 29.6 pg (25.0-34.0); Mean Corpuscular Hgb Conc 30.5 g/dL (32.0-36.0); Mean Platelet Volume 11.9 fL (9.4-12.4); Platelet Count 193 K/uL (130-400); RDW Coefficient of Variation 13.8 % (11.5-14.5); RDW Standard Deviation 48.8 fL (36.4-46.3); Red Blood Count 3.38 M/uL (4.20-5.40); White Blood Count 12.23 K/ul (4.8-10.8)
[2024-05-15 09:35] LABS: BUN Creatinine Ratio 14.7 (10-20); Calcium 8.9 mg/dl (8.6-10.3); Creatinine Clr Calc Pharmacy 62.6 ml/min; Magnesium 1.7 mg/dl (1.7-2.4); Potassium 3.6 mmol/L (3.5-5.1)
--- NOTE | 2024-05-15 10:16 | Hospitalist Progress Note ---
Date of Service May 15, 2024 Assessment & Plan (1) Neurogenic claudication due to lumbar spinal stenosis: Plan: Presented for elective spine surgery with Dr. Crowe in setting of chronic persistent back and leg pain after failing course of nonoperative care. - Status post L4-S1 decompression and fusion with Dr. Crowe on 05/13/2024. Per review of operative note, EBL 400 cc, no complications noted - Pain control, activity level, VTE ppx, and discharge planning per primary team - Had some postoperative tachycardia, which is now resolved - Acute blood loss anemia secondary to surgical intervention. Hgb stable at 10.0, no signs of active bleeding, no indication for blood transfusion at this time - Leukocytosis, suspect secondary to steroids. No signs of infection, afebrile - IV fluids discontinued now that patient is well-tolerating regular diet and or al fluids. Received IV fluids x48 hours postop in the setting of decreased oral intake - Continue pantoprazole 40 mg QAM - Continue gabapentin 300 mg TID - Continue imipramine 100 mg HS and duloxetine 40 mg HS - Continue Plaquenil 200 mg BID -- patient reports she takes this osteoarthritis. She does see a wellness educator. I suspect the history is rheumatoid arthritis, but patient is insistent on osteoarthritis - Continue bowel regimen to prevent constipation while receiving narcotics Plan Discontinued fluids Hospital medicine will continue to follow. Please reach out with any questions or concerns. VTE PPx: SCDs CODE STATUS: Full code Admission and Anticipated Discharge Date Admission Date: May 13, 2024 Supervising Physician Co-Signing Physician Notes chart reviewed and case d/w S Gross PAC. agree w above. Subjective Patient seen and evaluated at bedside. She reports that she is doing better today. She denies any headache or nausea at this time. She is well-tolerating regular diet. She notes that she slept well last night and her pain is decently controlled. She denies any radicular symptoms in her low extremities bilaterally. She has passed gas but no bowel movement yet. Still on strict bedrest until seen by Dr. Crowe today. No additional complaints or concerns at this time. Physical Exam Physical Exam: General: No acute distress, nondiaphoretic, well-developed, well-nourished. Cardiac: Regular rate and rhythm without murmurs gallops or rubs. Pulm: Clear to auscultation anteriorly, posterior lung duggan not auscultated. No wheezing noted. No respiratory distress. 94% on room air. Abdominal: Soft, nontender, nondistended. Hypoactive bowel sounds noted. : Montano catheter draining clear yellow urine. Neuro: A&O x3. No focal neurological deficits. Extremities: Sensation intake to lower extremities bilaterally. Cap refill <3 seconds in lower extremities bilaterally. Normal strength with plantarflexion and dorsiflexion. Results & Data Results & Data Vital Signs (Past 12 Hours) Vital Signs Temp Pulse Resp BP Pulse Ox O2 Del Method 05/15/24 07:58 98 F 100 H 16 112/64 90 Room Air Laboratory Results Reviewed CBC Reviewed BMP PG Care Time/CCT Total # of Minutes Spent Total Time Spent with Patient: Total time spent is greater than 50% in coordination of care (as documented) at patient's floor/unit and/or counseling patient: Coding Level of Care Code 37818 SUB INP/OBS CARE 2/35MIN Diagnoses Neurogenic claudication due to lumbar spinal stenosis M48.062
--- NOTE | 2024-05-15 10:45 | Orthopedic Progress Note ---
Date of Service May 15, 2024 Assessment & Plan (1) Neurogenic claudication due to lumbar spinal stenosis: Plan: At this time we will allow her to sit up in bed certainly with meals and as tolerated. I will reassess her tomorrow. If she continues to have headaches we may consider repeat I&D of the lumbar spine. If she is stable we may consider transfers to chair and ambulation. Will make her n.p.o. after midnight. Admission and Anticipated Discharge Date Admission Date: May 13, 2024 Subjective Patient is comfortable at this time. She is not experiencing headaches or nausea throughout the day yesterday. Leg symptoms still markedly improved. Physical Exam Physical Exam: On exam the dressings in place. There is no appreciable swelling to the lumbar spine. She is some tenderness palpation. She has good strength testing lower extremities. I did have her sit up this morning during my exam. She noted modest headache. No nuchal rigidity. Results & Data Vital Signs (Past 12 Hours) Vital Signs Temp Pulse Resp BP Pulse Ox O2 Del Method 05/15/24 07:58 36.6 C 100 H 16 112/64 90 Room Air
[2024-05-15] MEDS: SODIUM CHLORIDE 0.45 % 1,000 ML IV SCH (19:57)
[2024-05-16] MEDS: LORazepam 2 MG/1 ML VIAL IV PRN (01:47)
[2024-05-16 07:46] LABS: Hematocrit (blood only) 32.7 % (37.0-47.0); Hemoglobin 10.5 g/dl (12.0-16.0); Mean Corpuscular Hemoglobin 30.2 pg (25.0-34.0); Mean Corpuscular Hgb Conc 32.1 g/dL (32.0-36.0); Mean Platelet Volume 11.5 fL (9.4-12.4); Platelet Count 218 K/uL (130-400); RDW Coefficient of Variation 13.5 % (11.5-14.5); RDW Standard Deviation 46.3 fL (36.4-46.3); Red Blood Count 3.48 M/uL (4.20-5.40); White Blood Count 15.75 K/ul (4.8-10.8)
[2024-05-16] MEDS: LORazepam 0.5 MG TAB PO PRN (08:26)
--- NOTE | 2024-05-16 10:26 | Orthopedic Progress Note ---
Date of Service May 16, 2024 Assessment & Plan (1) Neurogenic claudication due to lumbar spinal stenosis: Plan: At this time we will advance her activity from bed to chair. She may ambulate in the room with assistance. Pending her progress today we will consult physical therapy for formal evaluation and ambulation. Will make her n.p.o. after midnight in the event we suspect continuous CSF leak. Admission and Anticipated Discharge Date Admission Date: May 13, 2024 Subjective Patient's complaining of back pain. No leg pain. No headaches or nausea or vomiting today. Physical Exam Physical Exam: On exam she is good strength testing. I did have her sit up throughout her discussion. She had no headaches. Results & Data Vital Signs (Past 12 Hours) Vital Signs Temp Pulse Resp BP Pulse Ox O2 Del Method O2 Flow Rate 05/16/24 07:52 36.7 C 105 H 18 159/92 H 95 Room Air 05/16/24 05:35 103 H 142/81 H 97 Nasal Cannula 2 05/16/24 02:55 94 Nasal Cannula 2 05/16/24 02:50 36.8 C 106 H 20 133/78 85 L Room Air
--- NOTE | 2024-05-16 13:52 | Hospitalist Progress Note ---
Date of Service May 16, 2024 Assessment & Plan (1) Neurogenic claudication due to lumbar spinal stenosis: Plan: Presented for elective spine surgery with Dr. Crowe in setting of chronic persistent back and leg pain after failing course of nonoperative care. - Status post L4-S1 decompression and fusion with Dr. Crowe on 05/13/2024. Per review of operative note, EBL 400 cc, no complications noted - Pain control, activity level, VTE ppx, and discharge planning per primary team - Tachycardia in 90s-100s, suspect secondary to pain - Acute blood loss anemia secondary to surgical intervention. Hgb stable at 10.5, no signs of active bleeding, no indication for blood transfusion at this time - Leukocytosis, suspect secondary to steroids. No signs of infection, afebrile - IV fluids discontinued now that patient is well-tolerating regular diet and oral fluids. Received IV fluids x48 hours postop in the setting of decreased oral intake - NPO at midnight pending possible surgical intervention 05/17 for possible CSF leak - Continue pantoprazole 40 mg QAM - Continue gabapentin 300 mg TID - Continue imipramine 100 mg HS and duloxetine 40 mg HS - Continue Plaquenil 200 mg BID -- patient reports she takes this osteoarthritis. She does see a geothermal field technician. I suspect the history is rheumatoid arthritis, but patient is insistent on osteoarthritis - Continue bowel regimen to prevent constipation while receiving narcotics Plan Hospital medicine will continue to follow. Please reach out with any questions or concerns. VTE PPx: SCDs CODE STATUS: Full code Admission and Anticipated Discharge Date Admission Date: May 13, 2024 Supervising Physician Co-Signing Physician Notes Attending Attestation - Chart reviewed, care plan d/w JAILYN Sebastian. I agree w/ the albert components of her documentation. João Zheng MD Subjective Patient seen and evaluated in bedside chair. She reports "terrible back pain," though she does not appear in any distress at this time. She reports minimal headache. Denies any nausea. Well tolerating diet so far. She is more confused today compared to yesterday (oriented to person and time) and displays inattentiveness. Suspect acute delirium. No additional complaints or concerns at this time. Physical Exam Physical Exam: General: No acute distress, nondiaphoretic, well-developed, well-nourished. Cardiac: Regular rate and rhythm without murmurs gallops or rubs. Pulm: Clear to auscultation bilaterally. No wheezing noted. No respiratory distress. 95% on room air. Abdominal: Soft, nontender, nondistended. Bowel sounds present. : Montano catheter draining clear yellow urine. Neuro: A&O x2 (person, time; not place or situation). No focal neurological deficits. Extremities: Sensation intake to lower extremities bilaterally. Cap refill <3 seconds in lower extremities bilaterally. Normal strength with plantarflexion and dorsiflexion. Results & Data Results & Data Vital Signs (Past 12 Hours) Vital Signs Temp Pulse Resp BP Pulse Ox O2 Del Method O2 Flow Rate 05/16/24 07:52 98.1 F 105 H 18 159/92 H 95 Room Air 05/16/24 05:35 103 H 142/81 H 97 Nasal Cannula 2 05/16/24 02:55 94 Nasal Cannula 2 05/16/24 02:50 98.2 F 106 H 20 133/78 85 L Room Air Laboratory Results Reviewed CBC PG Care Time/CCT Total # of Minutes Spent Total Time Spent with Patient: Total time spent is greater than 50% in coordination of care (as documented) at patient's floor/unit and/or counseling patient: Coding Level of Care Code 61141 SUB INP/OBS CARE 2MIN Diagnoses Neurogenic claudication due to lumbar spinal stenosis M48.062
[2024-05-17 07:46] LABS: Hematocrit (blood only) 31.3 % (37.0-47.0); Hemoglobin 10.3 g/dl (12.0-16.0); Mean Corpuscular Hemoglobin 29.4 pg (25.0-34.0); Mean Corpuscular Hgb Conc 32.9 g/dL (32.0-36.0); Mean Corpuscular Volume 89.4 fL (80.0-100.0); Mean Platelet Volume 11.7 fL (9.4-12.4); Platelet Count 248 K/uL (130-400); RDW Coefficient of Variation 13.6 % (11.5-14.5); RDW Standard Deviation 44.2 fL (36.4-46.3); White Blood Count 12.92 K/ul (4.8-10.8)
--- NOTE | 2024-05-17 11:07 | Orthopedic Progress Note ---
Date of Service May 17, 2024 Assessment & Plan (1) Neurogenic claudication due to lumbar spinal stenosis: Plan: At this time we will continue to wean her narcotic requirements as she is somewhat confused. We will maintain physical therapy as tolerated. Admission and Anticipated Discharge Date Admission Date: May 13, 2024 Subjective Patient is comfortable this time. She is tolerating physical therapy. She has no nausea or headaches at this time. Physical Exam Physical Exam: On exam she is back in bed. Is good strength testing. Results & Data Vital Signs (Past 12 Hours) Vital Signs Temp Pulse Resp BP Pulse Ox O2 Del Method 05/17/24 10:42 95 05/17/24 07:47 36.8 C 99 H 16 154/83 H 93 Room Air
--- NOTE | 2024-05-17 12:06 | Hospitalist Progress Note ---
Date of Service May 17, 2024 Assessment & Plan (1) Neurogenic claudication due to lumbar spinal stenosis: Plan: Presented for elective spine surgery with Dr. Crowe in setting of chronic persistent back and leg pain after failing course of nonoperative care. - Status post L4-S1 decompression and fusion with Dr. Crowe on 05/13/2024. Per review of operative note, EBL 400 cc, no complications noted - Pain control, activity level, VTE ppx, and discharge planning per primary team - Tachycardia in 90s-100s, suspect secondary to pain - improving - Acute blood loss anemia secondary to surgical intervention. Hgb stable at 10.3, no signs of active bleeding, no indication for blood transfusion at this time - Leukocytosis, suspect secondary to steroids. No signs of infection, afebrile - Continue pantoprazole 40 mg QAM - Continue gabapentin 300 mg TID - Continue imipramine 100 mg HS and duloxetine 40 mg HS - Continue Plaquenil 200 mg BID -- patient reports she takes this osteoarthritis. She does see a operations vocational instructor. I suspect the history is rheumatoid arthritis, but patient is insistent on osteoarthritis - Continue bowel regimen to prevent constipation while receiving narcotics - Altered mental status in setting of metabolic/environmental delirium > Ativan held, oxycodone and Dilaudid discontinued > Recommend weaning off narcotic medications, as this is likely contributing to acute confusion > Delirium can persist for several weeks even after inciting insult is removed - Patient is medically stable from hospital medicine's perspective. We will sign off at this time. Please reach out with any questions or concerns. Plan Patient is medically stable from hospital medicine's perspective. We will sign off at this time. Please reach out with any questions or concerns. Updated patient's at bedside VTE PPx: SCDs CODE STATUS: Full code Admission and Anticipated Discharge Date Admission Date: May 13, 2024 Subjective Patient seen and evaluated at bedside with present. She reports that she is progressing in her recovery. She worked with PT this morning and walked the halls, and sat up in the bedside chair for breakfast. She denies any headache or nausea today. She reports that her pain is well-controlled. Delirium continues, she is oriented to person and place only. Suspect combination of metabolic/environmental delirium. Recommend weaning off narcotic medications as pain control permits. Patient is medically stable from hospital medicine's perspective. We will sign off at this time. Physical Exam Physical Exam: General: No acute distress, nondiaphoretic, well-developed, well-nourished. Cardiac: Regular rate and rhythm without murmurs gallops or rubs. Pulm: Clear to auscultation bilaterally. No wheezing noted. No respiratory distress. 95% on room air. Abdominal: Soft, nontender, nondistended. Bowel sounds present. : Montano catheter draining clear yellow urine. Neuro: A&O x2 (person, time; not place or situation). No focal neurological deficits. Extremities: Sensation intake to lower extremities bilaterally. Cap refill <3 seconds in lower extremities bilaterally. Normal strength with plantarflexion and dorsiflexion. Results & Data Results & Data Vital Signs (Past 12 Hours) Vital Signs Temp Pulse Resp BP Pulse Ox O2 Del Method 05/17/24 10:42 95 05/17/24 07:47 98.2 F 99 H 16 154/83 H 93 Room Air Laboratory Results Reviewed CBC PG Care Time/CCT Total # of Minutes Spent Total Time Spent with Patient: Total time spent is greater than 50% in coordination of care (as documented) at patient's floor/unit and/or counseling patient: Coding Level of Care Code 59254 SUB INP/OBS CARE 2/35MIN Diagnoses Neurogenic claudication due to lumbar spinal stenosis M48.062
--- NOTE | 2024-05-18 08:28 | Orthopedic Progress Note ---
Date of Service May 18, 2024 Assessment & Plan (1) Neurogenic claudication due to lumbar spinal stenosis: Plan: At this time continue physical therapy. Possible discharge home tomorrow. Admission and Anticipated Discharge Date Admission Date: May 13, 2024 Subjective Patient's back pain is controlled leg symptoms improved. Physical Exam Physical Exam: Patient is in the chair at the bedside. She is eating breakfast. Is comfortable. Is constricted testing. Results & Data Vital Signs (Past 12 Hours) Vital Signs Temp Pulse Resp BP Pulse Ox O2 Del Method 05/18/24 07:46 36.9 C 98 H 17 153/70 H 95 Room Air 05/17/24 21:26 36.8 C 97 H 16 134/86 92 Room Air
--- NOTE | 2024-05-19 08:22 | Orthopedic Progress Note ---
Date of Service May 19, 2024 Assessment & Plan (1) Neurogenic claudication due to lumbar spinal stenosis: Plan: At this time we will consult occupational therapy in addition to physical therapy and see how she progresses out the day. There is discussion regarding rehab. She is not currently amenable to this plan. If she does well with therapy today perhaps she would be prepared for discharge home tomorrow. Admission and Anticipated Discharge Date Admission Date: May 13, 2024 Subjective Patient is sitting up in bed having breakfast. She states her back pain is a 6 out of 10. She denies any leg pain. Physical Exam Physical Exam: On exam the dressing is clean and dry. She is good strength testing. Results & Data Vital Signs (Past 12 Hours) Vital Signs Temp Pulse Resp BP Pulse Ox O2 Del Method 05/19/24 07:54 37.0 C 90 17 147/8 H 92 Room Air
[2024-05-19 14:32] VITALS: RESP 16
[2024-05-20 07:50] VITALS: TEMP 97.9; O2SAT 96
--- NOTE | 2024-05-20 09:30 | Discharge Summary ---
Date of Service May 20, 2024 Admission HPI Per Admitting Provider This is a 6-year-old female presents for chronic persistent back and leg pain after failing course of nonoperative care is here for surgical intervention. Discharge Data Consultations 05/13/24 15:42 Consult Hospitalist Routine Procedures Performed Operation Date: 05/13/24 10:05 Actual Procedures p L4-S1 Decompression and Fusion, Spinal Cord Monitoring(Not Applicable) - Kvng Crowe DO Hospital Course (1) Neurogenic claudication due to lumbar spinal stenosis: Patient is a pleasant 69-year-old female history physical examination radiographic images consistent with the above-mentioned diagnosis. For this reason she was brought to the operating room on 05/13/2024 and undergone a lumbar decompression from L4 to the sacrum with Dr. Crowe. Intraoperative complication arose when the patient had deficient dura and needed dural repair. She left the operating with a JEWELL drain and Montano in place and transferred to PACU in stable condition. She has not transferred to the orthopedic floor. She had 48 hours of head of bed flat bedrest. There were then started to elevate her bed and get her to a chair. Throughout her hospital course her dressings have remained clean dry and intact. She did have several episodes of confusion secondary to pain medication and restrictions. Over the past 48 hours she is cleared mentally and is progressed well with physical therapy. Her pain has been well-controlled. Throughout her hospital course her calves are supple and nontender her abdomen remained soft and nontender and on postoperative day #7 she has been deemed safe for home discharge. Discharge instructions were to change her dressing once daily till there is no drainage once there is no drainage she may shower. She should not left anything heavier than 5 to 7 po unds she should walk for exercise. She is contact the office if she had any increasing leg pain weakness in the legs or drainage from the incision. She was instructed if she started to develop any type of headache to lie flat for approximately 2 hours. If the headaches persisted she is going to contact our office. Will see her back in 2 weeks for her routine postop visit.
[2024-05-20 10:17] VITALS: BP 152/91; PULSE 100
== END 2024-05-20 11:34 | disposition home or self-care (01) | DRG 427 ==
LOC: ASU 08:27 → 3W 13:00